=== PATIENT | female | born 1945 | race Caucasian/White ===

== ENCOUNTER 2017-11-23 23:09 | Emergency (ER) | payer OTHER, MEDICARE ==
[~2017-11-23] VITALS: Ht 167.6 cm; Wt 77.1 kg
--- NOTE | 2017-11-23 23:59 | ED GI/GU/ABDOMINAL COMPLAINT ---
History of Present Illness General Chief Complaint: General Adult Stated Complaint: "DIARRHEA SINCE YESTERDAY" Source: patient Exam Limitations: PATIENT DOES NOT SPEAK Vital Signs & Intake/Output Vital Signs & Intake/Output Vital Signs Date Time Temp Pulse Resp B/P B/P Pulse O2 O2 Flow FiO2 Mean Ox Delivery Rate 11/24 0019 Room Air 11/23 2343 97.8 11/23 2324 96 18 114/76 96 Room Air ED Intake and Output 11/24 0000 11/23 1200 Intake Total Output Total Balance Patient 170 lb Weight Weight Estimated Measurement Method Allergies Coded Allergies: Cephalosporins (UNKNOWN 11/23/17) Penicillins (UNKNOWN 11/23/17) Triage Note: PT BROUGHT IN BY STAFF FROM HALFWAY C/O PT HAS HAD DIARRHEA FOR THE PAST 2X DAYS. PT A&0X1. 6X EPISODES ALTOGETHER. PT NON-VERBAL IN TRIAGE. PT SMILING, NO ACUTE DISTRESS NOTED. PTS AID STATES "WE WANT TO MAKE SURE SHE DOESNT NEED FLUIDS OR ANYTHING" Triage Nurses Notes Reviewed? yes ? N Is pt currently ? No Onset: Abrupt Duration: day(s):, continues in ED, intermittent, waxing and waning Timing: multiple episodes today HPI: Patient presents for evaluation of diarrhea that began yesterday. Patient has maintained a normal pedal intake and there has been no associated fever or vomiting or bleeding. The patient has had roughly 6 episodes of diarrhea but the patient's care home staff is unable to describe the appearance of the diarrhea. The patient has no prior history of GI symptoms or prior episodes of diarrhea. There are no known ill contacts or suspicious meals. No recent antibiotic use. Past History Travel History Traveled to [place] past 21 day No Medical History Any Pertinent Medical History? see below for history Neurological: AUSTISM INTELLUCTUAL DISABILITY EENT: cataracts Gastrointestinal: constipation Psychiatric: anxiety Cancer(s): LOBULAR CARCINOMA R BREAS Surgical History Surgical History: non-contributory Psychosocial History What is your primary language Persian Tobacco Use: Never used Family History Hx Contributory? No Review of Systems Review of Systems Constitutional: Reports: no symptoms. EENTM: Reports: no symptoms. Respiratory: Reports: no symptoms. Cardiovascular: Reports: no symptoms. GI: Reports: see HPI. Genitourinary: Reports: no symptoms. Musculoskeletal: Reports: no symptoms. Skin: Reports: no symptoms. Neurological/Psychological: Reports: no symptoms. Hematologic/Endocrine: Reports: no symptoms. Immunologic/Allergic: Reports: no symptoms. All Other Systems: Reviewed and Negative Comments Of note patient is unable to provide review of systems Physical Exam Physical Exam Gastrointestinal: SEE BELOW Comments: Gen.: Well-nourished, well-developed, no acute respiratory distress. Head: Normocephalic, atraumatic. Eyes: Normal inspection bilaterally Ears: Normal inspection bilaterally Nose: Normal inspection Throat/mouth : Moist mucosa Neck: Supple, full range of motion, no goiter Heart: Regular rate and rhythm, no murmurs rubs or gallops Lungs: Clear to auscultation bilaterally with normal air entry Chest: Nontender Back: Normal range of motion Abdomen: Soft, nontender, nondistended, normal bowel sounds Extremities: Normal range of motion grossly, equal radial pulses, no cyanosis clubbing or edema Neurologic: Cranial nerves grossly intact, speech is clear Skin: warm and dry Psychiatric: Calm, cooperative, no apparent delusions or hallucinations Core Measures ACS in differential dx? No Sepsis Present: No Sepsis Focused Exam Completed? No Progress Differential Diagnosis: ULCERATIVE COLITIS, cROHN'S DISEASE, INFLAMMATORY COLITIS, GASTROENTERITIS, c. DIFFICILE COLITIS Plan of Care: Orders Procedure Date/time Status URINALYSIS 11/23 2358 Active LIPASE 11/23 2358 Complete COMPREHENSIVE METABOLIC PANEL 11/23 2358 Complete CBC WITHOUT DIFFERENTIAL 11/23 2358 Complete Laboratory Tests 11/24/17 0015: Anion Gap 8, Estimated GFR > 60, BUN/Creatinine Ratio 20.0, Glucose 83, Calcium 9.4, Total Bilirubin 0.3, AST 26, ALT 32, Alkaline Phosphatase 81, Total Protein 6.7, Albumin 3.7, Globulin 3.0, Albumin/Globulin Ratio 1.2, Lipase 65, CBC w Diff NO MAN DIFF REQ, RBC 4.18 L, MCV 86.8, MCH 29.7, MCHC 34.2, RDW 12.8, MPV 6.9 L, Gran % 66.5, Lymphocytes % 17.3 L, Monocytes % 13.1 H, Eosinophils % 2.7, Basophils % 0.4, Absolute Granulocytes 4.9, Absolute Lymphocytes 1.3, Absolute Monocytes 1.0 H, Absolute Eosinophils 0.2, Absolute Basophils 0 Diagnostic Imaging: Discussed w/RAD: CT Scan. Radiology Impression: PATIENT: BETHEL GUO PRESENT AGE: 72 PATIENT ACCOUNT NO: [id number] : 47 LOCATION: [facility] ORDERING PHYSICIAN: Esvin Sosa MD SERVICE DATE: 11/23/17 EXAM TYPE : CAT - CT ABD & PELVIS W IV CONTRAST EXAMINATION: CT ABDOMEN AND PELVIS WITH CONTRAST CLINICAL INFORMATION: Multiple episodes of diarrhea COMPARISON: None TECHNIQUE: Multidetector volumetric imaging was performed of the abdomen and pelvis following IV administration of 94 mL of Optiray 320 intravenous contrast. Sagittal and coronal reformatted images were obtained on the technologist's workstation. DLP: 778.30 mGy-cm FINDINGS: Assessment in some regions is limited due to patient motion artifact. LUNG BASES: There is mild dependent atelectasis at the lung bases. LIVER, GALLBLADDER, AND BILIARY TREE: The liver is normal in size, shape, and attenuation. No focal hepatic lesion or biliary ductal dilatation is present. Cholelithiasis is noted. PANCREAS: Unremarkable. SPLEEN: There is a nonspecific hypoattenuating lesion in the inferior spleen measuring approximately 1 cm in diameter. ADRENAL GLANDS: Unremarkable. KIDNEYS AND URETERS: Bilateral nephrograms are symmetric. No hydronephrosis bilaterally. Punctate renal calculi are noted bilaterally. BLADDER: Unremarkable. GASTROINTESTINAL TRACT: No evidence of bowel obstruction. No significant colonic wall thickening or pericolonic inflammation is identified to suggest colitis. No significant colonic diverticulosis. The appendix is unremarkable. No free fluid or free air is seen. ABDOMINAL WALL: No significant hernia is appreciated. LYMPH NODES: Normal. VASCULAR: There is atherosclerotic calcification along the aorta. PELVIC VISCERA: Unremarkable. OSSEOUS STRUCTURES: Unremarkable. IMPRESSION: 1. No significant bowel abnormality identified. 2. Cholelithiasis. 3. Punctate bilateral renal calculi without hydronephrosis. 4. Nonspecific 1 cm low-density lesion in the spleen, statistically likely benign in the absence of additional clinical risk factors; considerations include a cyst or hemangioma. DICTATED BY: Suleman Lamas MD DATE/TIME DICTATED:11/24/17134 RATE EXAMINER:KAJAL DATE/TIME TRANSCRIBED:11/24/17134 CONFIDENTIAL, DO NOT COPY WITHOUT APPROPRIATE AUTHORIZATION. <Electronically signed in Other Vendor System> SIGNED BY: Suleman Lamas MD 11/24/17 0146 Initial ED EKG: none Comments: 11/24/2017 2:22:03 AM Bethel has had no diarrhea here in the emergency department. She appears comfortable at this time. Departure Departure Disposition: HOME OR SELF CARE Condition: Stable Clinical Impression Primary Impression: Diarrhea Qualifiers: Diarrhea type: unspecified type Qualified Code: R19.7 - Diarrhea, unspecified Referrals: Unknown (PCP/Family) Additional Instructions: Clear liquid diet until diarrhea begins to resolve then advance diet as tolerated. consider Imodium [id number] to help control diarrhea episodes. Follow-up with your primary care physician this week for reevaluation. If Bethel is able to provide a stool specimen then please send it for testing via her primary care physician. Return if any concerns or sudden worsening. Please note that there might be incidental findings in your evaluation that are unrelated to the current emergency department visit. Please notify your primary care doctor about this emergency department visit in order to obtain and review all of the testing performed so that these incidental findings can be monitored as needed. If you had an x-ray performed, please understand that some fractures may not be seen on the initial set of x-rays. If your symptoms persist you might need a repeat set of x-rays to check for such a fracture. If you had a laceration evaluated, please understand that foreign bodies such as glass or wood may not be visible to the naked eye or on plain x-rays. If the wound becomes red, swollen, increasingly more painful or if there is any drainage from the wound, please have it reevaluated by a physician for the possibility of a retained foreign body. If you're unable to follow up as outlined in the discharge instructions please return to the emergency department. Thank you for choosing the [facility] Emergency Department for your care. It was a pleasure to serve you today. Esvin Sosa M.D. [facility] Departure Forms: Customer Survey General Discharge Information
[2017-11-24 00:25] LABS: ABSOLUTE BASOPHIL COUNT 0 /CUMM (0.0-0.2); ABSOLUTE EOSINOPHIL COUNT 0.2 /CUMM (0.0-0.7); ABSOLUTE GRANULOCYTE CT 4.9 /CUMM (1.4-6.5); ABSOLUTE LYMPH COUNT 1.3 /CUMM (1.2-3.4); BASOPHIL % 0.4 % (0.0-2.0); EOSINOPHIL % 2.7 % (0-5); GRANULOCYTE % 66.5 % (42.2-75.2); HEMATOCRIT 36.3 % (37-47); MEAN CORPUSCULAR HGB 29.7 PG (27.0-31.0); MEAN CORPUSCULAR HGB CONC 34.2 G/DL (33.0-37.0); MEAN CORPUSCULAR VOLUME 86.8 FL (81.0-99.0); MEAN PLATELET VOLUME 6.9 FL (7.4-10.4); PLATELET COUNT 202 /CUMM (130-400); RBC DISTRIBUTION WIDTH 12.8 % (11.5-14.5); RED BLOOD CELL CT 4.18 /CUMM (4.20-5.40); WHITE BLOOD CELL COUNT 7.4 /CUMM (4.8-10.8)
--- NOTE | 2017-11-24 01:46 | CT SCAN REPORT ---
EXAMINATION: CT ABDOMEN AND PELVIS WITH CONTRAST CLINICAL INFORMATION: Multiple episodes of diarrhea COMPARISON: None TECHNIQUE: Multidetector volumetric imaging was performed of the abdomen and pelvis following IV administration of 94 mL of Optiray 320 intravenous contrast. Sagittal and coronal reformatted images were obtained on the technologist's workstation. DLP: 778.30 mGy-cm FINDINGS: Assessment in some regions is limited due to patient motion artifact. LUNG BASES: There is mild dependent atelectasis at the lung bases. LIVER, GALLBLADDER, AND BILIARY TREE: The liver is normal in size, shape, and attenuation. No focal hepatic lesion or biliary ductal dilatation is present. Cholelithiasis is noted. PANCREAS: Unremarkable. SPLEEN: There is a nonspecific hypoattenuating lesion in the inferior spleen measuring approximately 1 cm in diameter. ADRENAL GLANDS: Unremarkable. KIDNEYS AND URETERS: Bilateral nephrograms are symmetric. No hydronephrosis bilaterally. Punctate renal calculi are noted bilaterally. BLADDER: Unremarkable. GASTROINTESTINAL TRACT: No evidence of bowel obstruction. No significant colonic wall thickening or pericolonic inflammation is identified to suggest colitis. No significant colonic diverticulosis. The appendix is unremarkable. No free fluid or free air is seen. ABDOMINAL WALL: No significant hernia is appreciated. LYMPH NODES: Normal. VASCULAR: There is atherosclerotic calcification along the aorta. PELVIC VISCERA: Unremarkable. OSSEOUS STRUCTURES: Unremarkable. IMPRESSION: 1. No significant bowel abnormality identified. 2. Cholelithiasis. 3. Punctate bilateral renal calculi without hydronephrosis. 4. Nonspecific 1 cm low-density lesion in the spleen, statistically likely benign in the absence of additional clinical risk factors; considerations include a cyst or hemangioma.
[2017-11-24 02:28] VITALS: BP 121/78
== END 2017-11-24 02:37 ==
LOC: ERH 23:09
PROVIDERS: Emergency Medicine
DX: R19.7 Diarrhea, unspecified (principal)
CPT/HCPCS: 74177; 96360